=== PATIENT | male | born 1985 | race Caucasian/White ===

== ENCOUNTER 2018-05-17 14:25 | Emergency (ER) | payer MEDICAID ==
[~2018-05-17] VITALS: Ht 185.4 cm; Wt 75.0 kg
[2018-05-17 14:40] VITALS: BP 117/91
[2018-05-17] MEDS ORDERED: ketorolac trometh inj. 60 MG/2 ML VIAL IM ONE (15:00)
[2018-05-17] MEDS ORDERED: HYDR-3965 PO (15:02)
[2018-05-17] MEDS ORDERED: PRED20TA PO (15:02)
[2018-05-17] MEDS ORDERED: ACYC-202 PO (15:02)
== END 2018-05-17 15:26 | disposition home or self-care (01) ==
LOC: ER 14:27
DX: B02.9 Zoster without complications (principal); Z60.2 Problems related to living alone; Z79.899 Other long term (current) drug therapy
CPT/HCPCS: 96372; 99283; J1885

== ENCOUNTER 2018-06-04 08:14 | Emergency (ER) | payer MEDICAID ==
[~2018-06-04] VITALS: Ht 185.4 cm; Wt 75.0 kg
[2018-06-04 08:30] VITALS: BP 125/87
[2018-06-04] MEDS ORDERED: ACYC5CRE2 TOP (08:36)
== END 2018-06-04 09:11 | disposition home or self-care (01) ==
LOC: ER 08:15
DX: B02.9 Zoster without complications (principal)
CPT/HCPCS: 99283